=== PATIENT | female | born 1960 | race Hispanic/Latino ===

== ENCOUNTER → 2019-02-08 | Day surgery (SDC) | payer OTHER ==
[~2019-02-08] MED LIST: FENTANYL CITRATE/PF 100MCG/2 ML INJ ONE; MIDAZOLAM HCL 2 MG/2 ML VIAL ONE; PROPOFOL IV EMULSION 10 MG/ML 50 ML VIAL ONE
--- OUTSIDE RECORDS SUMMARY | 2019-02-08 06:34 | XMS REPORT ---
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 annual exam V72.3 Active Ace Nielson MD Special investigations and examinations - Gynecological examination Mammogram not high risk screening V76.12 Active Ace Nielson MD Other screening mammogram Osteoporosis screening V82.81 Active Ace Nielson MD Screening for osteoporosis Medication List Medication Instructions Start Date Stop Date Generic Name NDC Status Provider Patient Instruction No Drug Therapy Prescribed - none known did ask Hussein Encarnacion MA Vital Signs Date Name Value Unit Range Description blood pressure, diastolic 69 mm[Hg] BP tong blood pressure, systolic 138 mm[Hg] BP sys height E&M 63 [in_us] Bdy height pulse rate E&M 80 /min Heart rate respiratory rate E&M 16 /min Resp rate weight E&M 151.13 [lb_av] Weight Measured Procedures Code Procedure Name Date Entry Date Standard Description [id number] New Patient Well Exam (40 - 64 Yrs) - 25380 16:02:54 CDT [id number] New Patient Well Exam (40 - 64 Yrs) - [id number] 15:38:55 CDT
--- OUTSIDE RECORDS SUMMARY | 2019-02-08 06:34 | XMS REPORT ---
Author Author [facility] Address Unknown Phone Unavailable Care Team Providers Care Erp Analyst Name Role Phone Unavailable Unavailable Problems This patient has no known problems. Allergies, Adverse Reactions, Alerts This patient has no known allergies or adverse reactions. Medications This patient has no known medications. Results Test Description Test Time Test Comments Text Results Atomic Results Result Comments SCR MAMM BILATERAL CAD DIGITAL 2019-02-02 08:17:17 - SCR MAMM BILATERAL CAD DIGITALBILATERAL DIGITAL SCREENING MAMMOGRAM WITH CAD: 02/01/2019CLINICAL: Asymptomatic. Current mammographic images were evaluated by either a Pharmacy Development M- Vu or a brick&mobile ImageChecker CAD (computer aided detection system). Comparison is made to exams dated 01/30/2018 mammogram, 12/29/2016 mammogram, and 10/06/2015 mammogram - [facility]. There are scattered fibroglandular tissues in both breasts. There is a benign intramammary node in the right breast. No suspicious mass, architectural distortion, malignant type calcification, or lymph node abnormality detected. Breast architecture is stable compared to prior exams.IMPRESSION: BENIGNThere is no mammographic evidence of malignancy. Resume annual screening mammography in one year. Gerhard lenz/trace:02/02/2019 08:17:17 Hospital Monitor: Patricia ORDONEZ, [facility]: BIRADS 1-2 Normal Mammogram BI-RADS: 2 Benign
[2019-02-08 08:58] VITALS: BP 119/90
== END | disposition home or self-care (01) ==
LOC: OR 06:31
PROVIDERS: ATTEND Internal Medicine Gastroenterology
DX: Z12.11 Encounter for screening for malignant neoplasm of colon (principal); D12.5 Benign neoplasm of sigmoid colon; K64.8 Other hemorrhoids; Z71.3 Dietary counseling and surveillance; Z68.24 Body mass index [BMI] 24.0-24.9, adult; Z01.810 Encounter for preprocedural cardiovascular examination
CPT/HCPCS: 45385; 88305; 93005; J2250; J3010